=== PATIENT | female | born 1990 | race Two or more races ===

== ENCOUNTER 2022-07-02 21:47 | Emergency (ER) | payer OTHER ==
[~2022-07-02] VITALS: Ht 144.8 cm; Wt 69.0 kg
[2022-07-03 02:39] LABS: ANION GAP 12 mmol/L (8-16); CALCIUM, TOTAL 8.8 mg/dL (8.8-10.5); CARBON DIOXIDE 25 mmol/L (22-29); CHLORIDE 100 mmol/L (98-107); CREATININE 0.72 mg/dL (0.60-1.30); GLOMERULAR FILTR. RATE CALC > 60 mL/min (>60); GLUCOSE,RANDOM 69 mg/dL (70-110); POTASSIUM 3.4 mmol/L (3.5-5.1); SODIUM SERUM 137 mmol/L (136-145); UREA NITROGEN, BLOOD 12 mg/dL (7-18)
[2022-07-03 02:54] VITALS: BP 128/80
== END 2022-07-03 02:54 | disposition home or self-care (01) ==
LOC: EMS 21:51
DX: R25.2 Cramp and spasm (principal)
CPT/HCPCS: 80048; 83735; 85379; 93971; 99284